=== PATIENT | female | born 1955 | race Caucasian/White ===

== ENCOUNTER 2022-05-13 15:09 | Observation (INO) | payer MEDICARE, OTHER ==
[2022-05-13] MEDS ORDERED: MORPHINE SULFATE 4 MG/ML SYRINGE IV STA (15:45)
[2022-05-13] MEDS ORDERED: SODIUM CHLORIDE 0.9% 500 ML 500 ML IV STA (15:46)
--- NOTE | 2022-05-13 15:48 | ED ---
General Adult HPI - General Chief complaint: Fall Stated complaint: Fall Time Seen by Provider: 05/13/22 15:23 Source: patient, EMS Mode of arrival: EMS Limitations: physical limitation - History of Present Illness Initial comments: Dictation was produced using [employer] dictation software. please excuse any grammatical, word or spelling errors. Chief Complaint: 66-year-old female no significant past medical history presents to the emergency Department with back pain head pain and hip pain after fall History of Present Illness: 66-year-old female she presents to the emergency department after fall. Patient was on a ladder trying to put up a [place]. States that she lost her balance while reaching causing her to fall. Patient fell from a height about 6-8 feet. She landed on her back. Patient states she did hit her head. She has a hematoma over her occiput. Patient states that after the fall that she started having back pain, left hip pain and head pain. Patient denies any loss of consciousness. She does not take any medications on a regular basis. Denies any numbness and paresthesia to the arms or legs. The ROS documented in this emergency department record has been reviewed and confirmed by me. Those systems with pertinent positive or negative responses have been documented in the HPI. All other systems are other negative and/or noncontributory. PHYSICAL EXAM: General Impression: Alert and oriented x3, not in acute distress HEENT: Hematoma over the occiput measuring about 3x3 cm, extra-ocular movements intact, pupils equal and reactive to light bilaterally, mucous membranes moist. Cardiovascular: Heart regular rate and rhythm Chest: Able to complete full sentences, no retractions, no tachypnea Abdomen: abdomen soft, non-tender, non-distended, no organomegaly Musculoskeletal: Pulses present and equal in all extremities, no peripheral edema, or tenderness over the left hip Motor: no focal deficits noted Neurological: CN II-XII grossly intact, no focal motor or sensory deficits noted Skin: Intact with no visualized rashes Psych: Normal affect and mood ED course: 66-year-old female presents emergency Department with multiple pain complaints after fall from a ladder approximately height of 6-8 feet. Vital Signs upon arrival are within acceptable limits. To evaluation obtained. Mild leukocytosis of 14.9 with a secondary to stress. Metabolic panel is unremarkable. Computed tomography scan of the head and C- spine shows no acute processes. Computed tomography scan chest abdomen and pelvis shows no evidence of traumatic injury in the chest, abdomen and pelvis. Patient reevaluated bedside at 6:00 PM found with stable medical condition. C- collar was cleared. CT was looked at closer there does appear to be multiple nondisplaced left-sided rib fractures. Patient had significant pain with difficulty taking deep breaths and sitting up. Disposition options were discussed. Patient is agreeable for trauma observation admission. Case discussed with Dr. Riggins on-call for surgery who was agreeable with admission. Anesthesia consulted for pain control. - Related Data Home Medications Medication Instructions Recorded Confirmed Calcium Carb/Mag Ox/Zinc Sulf 1 tab PO DAILY 05/13/22 05/13/22 [Rsm-Soh-Iage 334-134-5 mg Tab] Cholecalciferol [Vitamin D3 (25 25 mcg PO DAILY 05/13/22 05/13/22 Mcg = 1000 Iu)] Multivit-Min/Iron/Folic/Lutein 1 tab PO DAILY 05/13/22 05/13/22 [Centrum Silver Women Tablet] Turmeric Root Extract [Turmeric] 500 mg PO DAILY 05/13/22 05/13/22 Vits A,C,E/Lutein/Minerals 1 tab PO DAILY 05/13/22 05/13/22 [Ocuvite with Lutein Tablet] Allergies Allergy/AdvReac Type Severity Reaction Status Date / Time [place] Allergy Nausea Uncoded 05/13/22 16:47 eggs Allergy Nausea Uncoded 05/13/22 16:47 [place] Allergy Nausea Uncoded 05/13/22 16:47 Seasonal Allergies AdvReac Cough Uncoded 05/13/22 16:47 Review of Systems ROS Statement: Those systems with pertinent positive or pertinent negative responses have been documented in the HPI. ROS Other: All systems not noted in ROS Statement are negative. Past Medical History Past Medical History: GERD/Reflux Additional Past Medical History / Comment(s): Hiatal hernia, History of Any Multi-Drug Resistant Organisms: None Reported Additional Past Surgical History / Comment(s): Bilateral bunion removal, bilate ral wrist carpal tunnel surgery, breast implants, 2 c-sections, nose surgery, Past Psychological History: No Psychological Hx Reported Smoking Status: Former smoker Past Alcohol Use History: Occasional Past Drug Use History: Marijuana General Exam Limitations: physical limitation Course Vital Signs 05/13/22 05/13/22 05/13/22 15:16 16:10 16:58 Temperature 98.3 F Pulse Rate 72 75 74 Respiratory 18 18 18 Rate Blood Pressure 126/80 128/83 134/81 O2 Sat by Pulse 95 97 98 Oximetry Medical Decision Making - Lab Data Result diagrams: 05/13/22 15:59 05/13/22 15:59 Lab Results 05/13/22 05/13/22 Range/Units 15:59 15:59 WBC 14.9 H (3.8-10.6) k/uL RBC 3.99 (3.80-5.40) m/uL Hgb 12.2 (11.4-16.0) gm/dL Hct 38.0 (34.0-46.0) % MCV 95.3 (80.0-100.0) fL MCH 30.6 (25.0-35.0) pg MCHC 32.1 (31.0-37.0) g/dL RDW 12.1 (11.5-15.5) % Plt Count 353 (150-450) k/uL MPV 7.5 Neutrophils % 84 % Lymphocytes % 11 % Monocytes % 4 % Eosinophils % 1 % Basophils % 1 % Neutrophils # 12.4 H (1.3-7.7) k/uL Lymphocytes # 1.6 (1.0-4.8) k/uL Monocytes # 0.6 (0-1.0) k/uL Eosinophils # 0.1 (0-0.7) k/uL Basophils # 0.1 (0-0.2) k/uL Sodium 140 (137-145) mmol/L Potassium 4.1 (3.5-5.1) mmol/L Chloride 106 (98-107) mmol/L Carbon Dioxide 23 (22-30) mmol/L Anion Gap 11 mmol/L BUN 19 H (7-17) mg/dL Creatinine 0.69 (0.52-1.04) mg/dL Est GFR (CKD-EPI)AfAm >90 (>60 ml/min/1.73 sqM) Est GFR (CKD-EPI)NonAf >90 (>60 ml/min/1.73 sqM) Glucose 114 H (74-99) mg/dL Calcium 9.2 (8.4-10.2) mg/dL Total Bilirubin 0.5 (0.2-1.3) mg/dL AST 33 (14-36) U/L ALT 23 (4-34) U/L Alkaline Phosphatase 93 (38-126) U/L Total Protein 6.8 (6.3-8.2) g/dL Albumin 4.1 (3.5-5.0) g/dL Disposition Clinical Impression: Ribs, multiple fractures Disposition: ADMITTED IP TO THIS [facility] Condition: Fair Referrals: Nonstaff,Physician [Primary Care Provider] - 1-2 days Decision Time: 18:43
[2022-05-13 16:10] LABS: Basophils # (A) 0.1 k/uL (0-0.2); Basophils % (A) 1 %; Eosinophils # (A) 0.1 k/uL (0-0.7); Eosinophils % (A) 1 %; HGB 12.2 gm/dL (11.4-16.0); Lymphocytes # (A) 1.6 k/uL (1.0-4.8); Lymphocytes % (A) 11 %; MCH 30.6 pg (25.0-35.0); MCHC 32.1 g/dL (31.0-37.0); MCV 95.3 fL (80.0-100.0); Mean Platelet Volume 7.5; Monocytes # (A) 0.6 k/uL (0-1.0); Monocytes % (A) 4 %; Neutrophils # (A) 12.4 k/uL (1.3-7.7); Neutrophils % (A) 84 %; Platelet Count 353 k/uL (150-450); RBC 3.99 m/uL (3.80-5.40); RDW 12.1 % (11.5-15.5); WBC 14.9 k/uL (3.8-10.6)
[2022-05-13 16:16] LABS: ALT 23 U/L (4-34); AST 33 U/L (14-36); African American GFR (CKD) >90 (>60 ml/min/1.73 sqM); Albumin 4.1 g/dL (3.5-5.0); Alkaline Phosphatase 93 U/L (38-126); Anion Gap 11 mmol/L; Blood Urea Nitrogen 19 mg/dL (7-17); Calcium 9.2 mg/dL (8.4-10.2); Carbon Dioxide 23 mmol/L (22-30); Chloride 106 mmol/L (98-107); Glucose 114 mg/dL (74-99); Non-African American GFR(CKD) >90 (>60 ml/min/1.73 sqM); Potassium 4.1 mmol/L (3.5-5.1); Sodium 140 mmol/L (137-145); Total Bilirubin 0.5 mg/dL (0.2-1.3); Total Protein 6.8 g/dL (6.3-8.2)
[2022-05-13] MEDS ORDERED: MORPHINE SULFATE 4 MG/ML SYRINGE IVP STA (16:55)
--- NOTE | 2022-05-13 17:31 | CT ---
EXAMINATION TYPE: CT brain shelbiine wo con DATE OF EXAM: 05/13/2022 COMPARISON: None HISTORY: trauma, fell off ladder CT DLP: 1499.4 mGycm Automated exposure control for dose reduction was used. Images of the brain and cervical spine obtained with no contrast. There is mild cerebral cortical atrophy. There is no mass effect or midline shift. No sign of intracr anial hemorrhage. The calvarium is intact. Skull base is intact. There is normal aeration of the mast oid sinuses. The cervical vertebra have normal alignment. There is disc space narrowing at C4-5 and C5-6 with spur ring of the endplates is multilevel facet arthropathy. Prevertebral soft tissues are intact. IMPRESSION: Mild cerebral atrophy. No acute intracranial abnormality. Mild spondylotic changes at C4-5 and C5-6. No fracture seen.
--- NOTE | 2022-05-13 17:38 | CT ---
EXAMINATION TYPE: CT ChestAbdPelvis w con DATE OF EXAM: 05/13/2022 COMPARISON: None HISTORY: trauma, fell off ladder Pain CT DLP: 849.6 mGycm Automated exposure control for dose reduction was used. CONTRAST: Performed with IV Contrast, patient injected with 100 mL of Isovue 300. Images obtained from the thoracic inlet to the floor of the pelvis with the IV contrast. There are some interstitial moderate infiltrates and atelectasis in the posterior lung zapien. There is bilateral breast implants which appear intact. Heart size is top normal. No pericardial effusion. There are no hilar masses. No mediastinal adenopathy. Thoracic aorta is intact. No aneurysm. The asce nding aorta measures 3.2 cm. No pneumothorax. Liver spleen and stomach pancreas gallbladder appear intact. The bile ducts are not dilated. There is no adrenal mass. Kidneys show satisfactory contrast opacification. There is no hydronephrosi s. Ureters are not dilated. There is no retroperitoneal adenopathy. Bladder distends smoothly. No ing uinal hernia. Uterus is anteverted. No pelvic mass. No free fluid in the pelvis. No evidence of thick ened appendix. There is no mesenteric edema. No ascites or free air. No sign of a bowel obstruction. Thoracic and lumbar vertebra show no compression fracture. There is a mild focal lumbar levoscoliosis . There is mild thoracic dextroscoliosis. There is some mild lateral subluxation deformities at L1-2 and T12-L1. The bony pelvis is intact. The hip joints are intact. No hip fracture. Sacroiliac joints are intact. Pubic bone is intact. No rib fractures seen. Shoulder joints appear intact. IMPRESSION: No evidence of traumatic injury in the abdomen pelvis. There is some interstitial infiltrates and ate lectasis in the posterior lung zapien. No pneumothorax. No fractures seen.
[2022-05-13] MEDS ORDERED: LIDOCAINE 5% PATCH TOPICAL STA (18:24)
[2022-05-13] MEDS ORDERED: HYDROmorphone 0.5 MG/0.5 ML SYRINGE IVP STA (18:24)
[2022-05-13] MEDS ORDERED: NALOXONE 0.4 MG/ML 1 ML VIAL IV PRN (18:32)
[2022-05-13] MEDS ORDERED: ACETAMINOPHEN TAB 325 MG TAB PO PRN (18:32)
[2022-05-13] MEDS ORDERED: ONDANSETRON 4 MG/2 ML VIAL IVP PRN (18:32)
[2022-05-13] MEDS ORDERED: SODIUM CHLORIDE 0.9% 1,000 ML IV SCH (18:45)
[2022-05-13] MEDS ORDERED: KETOROLAC 15 MG/ML 1 ML VIAL IM SCH (19:15)
--- NOTE | 2022-05-13 19:28 | P.GSHP ---
History of Present Illness H&P Date: 05/13/22 Chief Complaint: I fell off a ladder 66 yo female was working at home while on a ladder approx 6-7 feet off the ground when she lost her balence and fell onto her left side, landing on cement. Pt denies any l.o.c., no neck or facial pain, no paresthesias, numness or weakness. Pt notes significant L chest and some back pain, hurts totake a deep breath. No abdominal, pelvic or lower extremity pain. Past Medical History Past Medical History: GERD/Reflux Additional Past Medical History / Comment(s): Hiatal hernia, History of Any Multi-Drug Resistant Organisms: None Reported Past Surgical History: Section Additional Past Surgical History / Comment(s): Bilateral bunion removal, bilateral wrist carpal tunnel surgery, breast implants, 2 c-sections, nose surgery, Past Anesthesia/Blood Transfusion Reactions: No Reported Reaction Past Psychological History: No Psychological Hx Reported Smoking Status: Former smoker Past Alcohol Use History: Occasional Past Drug Use History: Marijuana Medications and Allergies Home Medications Medication Instructions Recorded Confirmed Type Calcium Carb/Mag Ox/Zinc Sulf 1 tab PO DAILY 05/13/22 05/13/22 History [Okk-Yzc-Wfnf 334-134-5 mg Tab] Cholecalciferol [Vitamin D3 (25 25 mcg PO DAILY 05/13/22 05/13/22 History Mcg = 1000 Iu)] Multivit-Min/Iron/Folic/Lutein 1 tab PO DAILY 05/13/22 05/13/22 History [Centrum Silver Women Tablet] Turmeric Root Extract [Turmeric] 500 mg PO DAILY 05/13/22 05/13/22 History Vits A,C,E/Lutein/Minerals 1 tab PO DAILY 05/13/22 05/13/22 History [Ocuvite with Lutein Tablet] Allergies Allergy/AdvReac Type Severity Reaction Status Date / Time [place] Allergy Nausea Uncoded 05/13/22 16:47 eggs Allergy Nausea Uncoded 05/13/22 16:47 [place] Allergy Nausea Uncoded 05/13/22 16:47 Seasonal Allergies AdvReac Cough Uncoded 05/13/22 16:47 Surgical - Exam Vital Signs Temp Pulse Resp BP Pulse Ox 98.3 F 72 18 126/80 95 05/13/22 15:16 05/13/22 15:16 05/13/22 15:16 05/13/22 15:16 05/13/22 15:16 - General well developed, well nourished, moderate pain - Eyes normal ocular movement - Neck no pain on palpation, normal ROM trachea midline, no lymphadectomy - Respiratory clear, decreased respiratory excursion - Cardiovascular Rhythm: regular - Abdomen Abdomen: soft, non tender - Integumentary no rash - Neurologic A&O x 3, normal strength, normal sensation - Psychiatric oriented to time, oriented to person, oriented to place, speech is normal Results - Labs 05/13/22 15:59 05/13/22 15:59 Abnormal Lab Results - Last 24 Hours (Table) 05/13/22 05/13/22 Range/Units 15:59 15:59 WBC 14.9 H (3.8-10.6) k/uL Neutrophils # 12.4 H (1.3-7.7) k/uL BUN 19 H (7-17) mg/dL Glucose 114 H (74-99) mg/dL Diabetes panel 05/13/22 Range/Units 15:59 Sodium 140 (137-145) mmol/L Potassium 4.1 (3.5-5.1) mmol/L Chloride 106 (98-107) mmol/L Carbon Dioxide 23 (22-30) mmol/L BUN 19 H (7-17) mg/dL Creatinine 0.69 (0.52-1.04) mg/dL Glucose 114 H (74-99) mg/dL Calcium 9.2 (8.4-10.2) mg/dL AST 33 (14-36) U/L ALT 23 (4-34) U/L Alkaline Phosphatase 93 (38-126) U/L Total Protein 6.8 (6.3-8.2) g/dL Albumin 4.1 (3.5-5.0) g/dL Calcium panel 05/13/22 Range/Units 15:59 Calcium 9.2 (8.4-10.2) mg/dL Albumin 4.1 (3.5-5.0) g/dL Pituitary panel 05/13/22 Range/Units 15:59 Sodium 140 (137-145) mmol/L Potassium 4.1 (3.5-5.1) mmol/L Chloride 106 (98-107) mmol/L Carbon Dioxide 23 (22-30) mmol/L BUN 19 H (7-17) mg/dL Creatinine 0.69 (0.52-1.04) mg/dL Glucose 114 H (74-99) mg/dL Calcium 9.2 (8.4-10.2) mg/dL Adrenal panel 05/13/22 Range/Units 15:59 Sodium 140 (137-145) mmol/L Potassium 4.1 (3.5-5.1) mmol/L Chloride 106 (98-107) mmol/L Carbon Dioxide 23 (22-30) mmol/L BUN 19 H (7-17) mg/dL Creatinine 0.69 (0.52-1.04) mg/dL Glucose 114 H (74-99) mg/dL Calcium 9.2 (8.4-10.2) mg/dL Total Bilirubin 0.5 (0.2-1.3) mg/dL AST 33 (14-36) U/L ALT 23 (4-34) U/L Alkaline Phosphatase 93 (38-126) U/L Total Protein 6.8 (6.3-8.2) g/dL Albumin 4.1 (3.5-5.0) g/dL - Imaging CT scan - abdomen: report reviewed CT scan - chest: report reviewed (CT head and C spine reported as negative, no traumatic injuries) Assessment and Plan Assessment: 66 yo woman s/p fall from ladder w clinical and subtle radiograpic mutiple L rib fx. Admit for pain control, anesthesia pain consult (possible block) Incentive spirometry Rationale discussed w patient and spouse and they are agreeable Time with Patient: Less than 30
[2022-05-13] MEDS: HYDROmorphone 0.5 MG/0.5 ML SYRINGE IVP PRN (21:50)
[2022-05-14] MEDS: KETOROLAC 15 MG/ML 1 ML VIAL IVP SCH ×3 (00:12→11:54)
[2022-05-14] MEDS: HYDROmorphone 0.5 MG/0.5 ML SYRINGE IVP PRN ×2 (04:41→10:57)
--- NOTE | 2022-05-14 07:34 | XR ---
EXAMINATION TYPE: XR chest 2V DATE OF EXAM: 05/14/2022 7:13 AM COMPARISON: CT chest abdomen pelvis one day prior. TECHNIQUE: XR chest 2V Frontal and lateral views of the chest. CLINICAL INDICATION:Female, 66 years old with history of Chest Trauma; FINDINGS: Lungs/Pleura: There is no evidence of pleural effusion, focal consolidation, or pneumothorax. Pulmonary vascularity: Unremarkable. Heart/mediastinum: Cardiomediastinal silhouette is unremarkable. Musculoskeletal: No acute osseous pathology. IMPRESSION: No acute cardiopulmonary disease/process.
[2022-05-14 08:01] VITALS: BP 113/69; PULSE 56; RESP 12; TEMP 98
[2022-05-14 09:20] LABS: Basophils # (A) 0.03 X 10*3/uL (0.00-0.10); Basophils % (A) 0.3 %; Eosinophils # (A) 0.04 X 10*3/uL (0.04-0.35); Eosinophils % (A) 0.5 %; HCT 34.4 % (37.2-46.3); HGB 11.4 g/dL (12.0-15.0); Immature Grans, Automated 0.2 %; Lymphocytes # (A) 2.33 X 10*3/uL (0.90-5.00); Lymphocytes % (A) 26.7 %; MCH 31.3 pg (27.0-32.0); MCHC 33.1 g/dL (32.0-37.0); MCV 94.5 fL (80.0-97.0); Mean Platelet Volume 10.2 fL (9.5-12.2); Monocytes # (A) 0.82 X 10*3/uL (0.20-1.00); Monocytes % (A) 9.4 %; NRBC Per 100 WBC 0 /100 WBCS (0.0-0.0); Neutrophils % (A) 62.9 %; Platelet Count 351 X 10*3/uL (140-440); RBC 3.64 X 10*6/uL (4.10-5.20); RDW 12.6 % (11.5-14.5); WBC 8.74 X 10*3/uL (4.50-10.00)
== END 2022-05-14 13:20 | disposition home or self-care (01) ==
LOC: EC 15:09 → 6NMEDSUR 18:33
PROVIDERS: ADMIT Surgery; ATTEND Surgery
DX: S29.8XXA Other specified injuries of thorax, initial encounter (principal); S00.03XA Contusion of scalp, initial encounter; D72.829 Elevated white blood cell count, unspecified; K21.9 Gastro-esophageal reflux disease without esophagitis; F12.90 Cannabis use, unspecified, uncomplicated; J98.11 Atelectasis; M41.85 Other forms of scoliosis, thoracolumbar region; Z87.891 Personal history of nicotine dependence; Z98.82 Breast implant status; W11.XXXA Fall on and from ladder, initial encounter
CPT/HCPCS: 96375 ×2; 96376 ×2; 96374; 99285; 36415; 80053; 83605; 85025 ×2; 71046; 72125; 70450; 71260; 74177; G0378 ×2; J2270; J1885; J1170 ×2; Q9967